=== PATIENT | male | born 1950 | race Hispanic/Latino ===

== ENCOUNTER → 2020-12-10 | Day surgery (SDC) | payer MEDICARE ==
[2020-12-09 09:07] LABS: BASOPHILS % 0.4 % (0.0-1.0); EOSINOPHILS # (AUTO) 0.3 (0.0-0.4); EOSINOPHILS % 3.6 % (0.0-6.0); HEMATOCRIT 42.9 % (38.2-49.6); HEMOGLOBIN 14.5 g/dL (14.0-18.0); LYMPHOCYTES # (AUTO) 1.7 (1.0-3.2); LYMPHOCYTES % 20.7 % (18.0-39.1); MEAN CORPUSCULAR HEMOGLOBIN 32.3 pg (28-32); MEAN CORPUSCULAR HGB CONC 33.8 g/dL (31-35); MEAN CORPUSCULAR VOLUME 95.5 fL (81-99); MONOCYTES # (AUTO) 0.7 (0.2-0.8); NEUTROPHILS # (AUTO) 5.4 (2.1-6.9); NEUTROPHILS % 65.7 % (38.7-80.0); PLATELET COUNT 195 x10e3/uL (140-360); RED BLOOD COUNT 4.49 x10e6/uL (4.3-5.7); RED CELL DISTRIBUTION WIDTH 12.7 % (11.7-14.4)
[2020-12-09 09:25] LABS: CALCIUM 9.4 mg/dL (8.4-10.2); CREATININE, SERUM 1.03 mg/dL (0.72-1.25)
[~2020-12-10] MED LIST: AUGMENTIN 500-1 EACH PO; CLINDAMYCIN HC150 MG PO; DEXAMETHASONE SOD PHOS INJ 4 MG/ML SDV ONE; DOXAZOSIN MESYLA4 MG PO; DOXYCYCLINE MO100 M1 PO; ENALAPRIL MALE2.5 MG PO; EPHEDRINE SULFATE INJ 50 MG/ML VIAL ONE; EPINEPHRINE 1 MG/ML 30ML VIAL ONE; GLYBURIDE5 MG PO; GLYCOPYRROLATE INJ 0.2 MG/ML VIAL ONE; HYDROCHLOROTHIA25 MG PO; KETOROLAC TROMETHAMINE 30 MG/ML VIAL ONE; LABETALOL HCL200 MG PO; LIDOCAINE HCL 2% LOCAL INJ 5 ML SDV VIAL INJ ONE; METFORMIN HCL1000 MG PO; NEOSTIGMINE 1 MG/ML 10ML VIAL ONE; NORVASC10 MG PO; ONDANSETRON HCL 4 MG ORAL DISINTEGRATING TAB ONE; ONDANSETRON HCL INJ 2MG/ML 2ML 2 MG/ML VIAL ONE; POVIDONE IODINE 0.05% 0.05 % ML PO ONE; PRAVASTATIN SOD10 MG PO; PROPOFOL IV EMULSION 10 MG/ML 20 ML VIAL ONE; ROCURONIUM BROMIDE 10 MG/ML 5ML VIAL IV ONE; SEVOFLURANE INHAL SOLN 250 ML PEN BTL ONE; SIMVASTATIN10 MG PO; SODIUM CHLORIDE 0.9% 50ML 100 ML ONE
[2020-12-10 11:15] VITALS: BP 156/83
== END | disposition home or self-care (01) ==
LOC: OR 06:06
PROVIDERS: ATTEND Specialist
DX: M75.121 Complete rotator cuff tear or rupture of right shoulder, not specified as traumatic (principal); M19.011 Primary osteoarthritis, right shoulder; M24.611 Ankylosis, right shoulder; M65.811 Other synovitis and tenosynovitis, right shoulder; S46.211A Strain of muscle, fascia and tendon of other parts of biceps, right arm, initial encounter; M94.211 Chondromalacia, right shoulder; E11.9 Type 2 diabetes mellitus without complications; I10 Essential (primary) hypertension; R00.1 Bradycardia, unspecified; X58.XXXA Exposure to other specified factors, initial encounter; Z88.6 Allergy status to analgesic agent; Z01.810 Encounter for preprocedural cardiovascular examination; Z01.812 Encounter for preprocedural laboratory examination; Z01.818 Encounter for other preprocedural examination; Z20.822 Contact with and (suspected) exposure to COVID-19; Z79.84 Long term (current) use of oral hypoglycemic drugs
CPT/HCPCS: 29824; 29826; 29827; 36415 ×2; 71046; 80048; 82948; 85025; 93005; C1713; J0690; J1100; J1885; J2001; J2405; J2704; J2710; Q0162; U0002